=== PATIENT | female | born 1985 | race Caucasian/White ===

== ENCOUNTER 2017-12-19 15:00 | Emergency (ER) | END 2017-12-19 17:03 | disposition home or self-care (01) ==

== ENCOUNTER 2017-12-22 08:19 | Emergency (ER) | END 2017-12-22 09:33 | disposition home or self-care (01) ==

== ENCOUNTER 2018-03-07 14:39 | Emergency (ER) | payer BC ==
[~2018-03-07] VITALS: Wt 94.3 kg
[~2018-03-07 14:39] MED LIST: CEPH-443 PO; HYDR-4011 PO; SULF1TAB31 PO; TRIA15CR55 TOP
[2018-03-07] MEDS ORDERED: ACETAMINOPHEN 500 MG TAB PO STA (14:59)
--- NOTE | 2018-03-07 16:24 | ERD ---
ER Documentation Chief Complaint Chief Complaint R facial drop since last PM; R decreased sens, weak R arm. LWKT 03/06 HPI 33-year-old female no significant past medical history who presents to the emergency room with 24 hours of symptoms of right-sided facial droop. She states that yesterday early in the morning around 7 AM she started to have some numbness to the right side of her face, decreased taste to the anterior portion of her tongue on the right side. Patient notes that she had progressive facial weakness including her forehead. She also describes paresthesias to the right upper extremity more to the proximal portion. No slurred speech, no motor weakness of the right upper extremity. She has described a headache that is gradual onset, bandlike and right-sided greater than left. ROS All systems reviewed and are negative except as per history of present illness. Medications Home Meds Active Scripts Tetrahydrozoline Hcl* (Visine*) 0.05% - 15 Ml Drops, 2 DROP RIGHT EYE Q3H PRN for RED EYES, #1 EA Prov:MARIAJOSE DIAZ MD 03/07/18 Acyclovir* (Acyclovir*) 400 Mg Tablet, 400 MG PO 5 TIMES DAILY for 10 Days, TAB Prov:MARIAJOSE DIAZ MD 03/07/18 Prednisone* (Prednisone*) 20 Mg Tab, 60 MG PO DAILY for 7 Days, TAB Prov:MARIAJOSE DIAZ MD 03/07/18 Discontinued Scripts Triamcinolone Acetonide (Triamcinolone Acetonide) 0.1% - 15 Gm Cream.gm., 1 APPLIC TOP BID, #1 TUB Prov:MARCOS HAAS PA-C 12/22/17 Hydrocodone/Acetaminophen ([place] 5-325 Tablet) 1 Each Tablet, 1 TAB PO Q6H PRN for PAIN, #12 TAB Prov:AGGIE FARRIS PA-C 12/19/17 Sulfamethoxazole/Trimethoprim* (Bactrim Ds* Tablet) 1 Each Tablet, 1 TAB PO BID, #14 TAB Prov:AGGIE FARRIS PA-C 12/19/17 Cephalexin* (Keflex*) 500 Mg Capsule, 500 MG PO QID for 7 Days, CAP Prov:AGGIE FARRIS PA-C 12/19/17 Allergies Allergies: Coded Allergies: No Known Allergy (Unverified , 03/07/18) PMhx/Soc Medical and Surgical Hx: pt denies Medical Hx, pt denies Surgical Hx Hx Miscellaneous Medical Probl: Yes (chronic back pain, skin d/o ) Hx Alcohol Use: No Hx Substance Use: No Hx Tobacco Use: No Smoking Status: Never smoker FmHx Family History: No diabetes Physical Exam Vitals Vital Signs Date Temp Pulse Resp B/P (MAP) Pulse Ox O2 O2 Flow FiO2 Time Delivery Rate 03/07/18 97.9 75 18 139/98 96 Room Air 17:30 (112) 03/07/18 97.4 85 18 148/106 99 Room Air 14:58 (120) 03/07/18 97.4 88 16 142/97 98 14:44 (112) Physical Exam General: Well developed, well nourished, no acute distress Head: Normocephalic, atraumatic. 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 Patient is subjective paresthesias to the lateral aspect of the right upper extremity. No pronator drift. 5 out of 5 strength to all 4 extremities. Steady gait. No cerebellar signs. Skin: No rash Psych: Normal mood Result Diagram: 03/07/18 1500 03/07/18 1500 Results 24 hrs Laboratory Tests Test 03/07/18 14:58 03/07/18 15:00 03/07/18 15:19 03/07/18 15:20 Bedside Glucose 106 mg/dL White Blood Count 8.7 10^3/ul Red Blood Count 5.53 10^6/ul Hemoglobin 14.7 g/dl Hematocrit 45.1 % Mean Corpuscular 81.6 fl Volume Mean Corpuscular 26.6 pg Hemoglobin Mean Corpuscular 32.6 g/dl Hemoglobin Concent Red Cell 13.3 % Distribution Width Platelet Count 313 10^3/UL Mean Platelet 11.0 fl Volume Immature 0.300 % Granulocytes % Neutrophils % 59.0 % Lymphocytes % 32.0 % Monocytes % 6.2 % Eosinophils % 1.9 % Basophils % 0.6 % Nucleated Red Blood 0.0 /100WBC Cells % Immature 0.030 10^3/ul Granulocytes # Neutrophils # 5.1 10^3/ul Lymphocytes # 2.8 10^3/ul Monocytes # 0.5 10^3/ul Eosinophils # 0.2 10^3/ul Basophils # 0.1 10^3/ul Nucleated Red Blood 0.0 10^3/ul Cells # Prothrombin Time 12.7 Sec Prothrombin Time 1.0 Ratio INR International 0.94 Normalized Ratio Activated 30.9 Sec Partial Thromboplas t Time Sodium Level 142 mmol/L Potassium Level 3.8 mmol/L Chloride Level 104 mmol/L Carbon Dioxide 25 mmol/L Level Anion Gap 13 Blood Urea Nitrogen 17 mg/dl Creatinine 0.79 mg/dl Est Glomerular > 60 mL/min Filtrat Rate mL/min Glucose Level 108 mg/dl Calcium Level 9.9 mg/dl Bedside Urine pH 6.0 (LAB) Bedside Urine 2+ Protein (LAB) Bedside Urine Negative Glucose (UA) Bedside Urine 1+ Ketones (LAB) Bedside Urine Blood 1+ Bedside Urine Negative Nitrite (LAB) Bedside Urine Negative Leukocyte Esterase (L POC Beta HCG, NEGATIVE Qualitative Current Medications Medications Dose Sig/Edwardo Start Time Status Last (Trade) Ordered Route PRN Stop Time Admin Dose Reason Admin 1,000 mg ONCE STAT 03/07/18 DC 03/07/18 Acetaminophen PO 14:59 15:13 (Tylenol 03/07/18 15:02 Tab) Ketorolac 15 mg ONCE STAT 03/07/18 UNV Tromethamine IV 17:53 (Toradol) 03/07/18 17:54 Ketorolac 30 mg STK-MED 03/07/18 DC Tromethamine ONCE .ROUTE 17:56 (Toradol) 03/07/18 17:57 Procedures/MDM EKG, MONITORS, & DIAGNOSTIC IMAGING: EKG: I reviewed and interpreted a 12-lead EKG. 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 Uncomplicated. House Brackmann score grade 4 or greater given limited ability to close the eye completely. However, the patient does have atypical symptoms including headache and paresthesia of the right upper extremity. I believe these are subjective more than objective and unlikely related to acute stroke syndrome, subarachnoid hemorrhage or other acute intracranial process. Patient has no neck pain no migratory pain to suggest dissection or aneurysm. Given low pretest probability for stroke syndrome I would like to avoid unnecessary inpatient hospitalization. MRI of the brain in the ER setting would be most appropriate. The patient's last known well time is greater than 24 hours prior to arrival therefore no indication for stroke code activation, CTA or transfer at this time. Reassurance provided to the patient. ER COURSE: * Patient continues to be well-appearing, she was given pain medication for her headache. Symptoms improving. CT and MRI of the brain are unremarkable. 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 Patient's paresthesias are waxing and waning. Unlikely related to stroke syndrome. MRI is clean. Patient can be safely discharged and follow-up with neurologist on an outpatient basis. CONSULTATION: [None] DISPOSITION PLAN: The patient does not have an identifiable emergent medical condition that warrants inpatient hospitalization at this time. The patient is deemed safe for discharge with outpatient follow-up. We discussed follow up with the patient's primary care doctor within 24 to 48 hours as needed. We also discussed return to the emergency room for worsening symptoms or worsening condition. Outpatient referral: Neurology Discharge Medications: Prednisone, acyclovir, Visine Departure Diagnosis: Primary Impression: Gonzalez's palsy Additional Impression: Numbness Condition: Stable MARIAJOSE DIAZ MD Mar 07, 2018 16:24
[2018-03-07] MEDS ORDERED: KETOROLAC 15 MG INJ IV STA (17:53)
[2018-03-07] MEDS ORDERED: KETOROLAC 30 MG INJ ONE (17:56)
[2018-03-07] MEDS ORDERED: PRED20TA PO (17:57)
[2018-03-07] MEDS ORDERED: ACYC400T2 PO (17:57)
[2018-03-07] MEDS ORDERED: TETR15DR63 RIGHT EYE (17:57)
[2018-03-07 18:12] VITALS: BP 120/85; PULSE 72; RESP 20
[2018-03-08] MEDS ORDERED: BENZ-6 PO (08:28)
[2018-03-08] MEDS ORDERED: GUAI5SYR2 PO (08:30)
[2018-03-08] MEDS ORDERED: ALBU8.5H8 INH (08:34)
== END 2018-03-07 18:13 | disposition home or self-care (01) ==
LOC: E/R 14:39
DX: G51.0 Bell's palsy (principal); R20.0 Anesthesia of skin; R40.2252 Coma scale, best verbal response, oriented, at arrival to emergency department; R40.2362 Coma scale, best motor response, obeys commands, at arrival to emergency department; R40.2142 Coma scale, eyes open, spontaneous, at arrival to emergency department
CPT/HCPCS: 36415; 70450; 70551; 80048; 81003; 81025; 82962; 85025; 85610; 85730; 93005; 96374; J1885; Z7502; Z7610